=== PATIENT | female | born 1965 | race Caucasian/White ===

== ENCOUNTER 2017-01-29 15:34 | Inpatient (IN) | payer OTHER ==
[2017-01-29] MEDS ORDERED: Ondansetron 4 MG/2 ML SDV IV ONE (16:01)
[2017-01-29] MEDS ORDERED: Morphine 2 MG/ML Syringe IVPUSH ONE (16:01)
--- NOTE | 2017-01-29 16:11 | EDM.PDOC ---
ED HPI GENERAL MEDICAL PROBLEM - General Chief Complaint: Skin Complaint Stated Complaint: POSS CELLULITIS/BLOOD CLOT, [id number] Time Seen by Provider: 01/29/17 16:06 Source of Information: Reports: Patient History Limitations: Reports: No Limitations - History of Present Illness INITIAL COMMENTS - FREE TEXT/NARRATIVE: states woke up with left leg redness swelling pain hot. was fine last night Left Lower Leg Pain Score (Numeric/FACES): 4 - Related Data Allergies Allergy/AdvReac Type Severity Reaction Status Date / Time codeine Allergy Depression Verified 01/29/17 15:53 Home Meds: Home Meds Chlorthalidone [Chlorthalidone] 1 tab PO DAILY 01/29/17 [History] ED ROS GENERAL - Review of Systems Review Of Systems: ROS reveals no pertinent complaints other than HPI. ED EXAM, SKIN/RASH Exam: See Below Exam Limited By: No Limitations General Appearance: Alert, WD/WN, Mild Distress, Other (crying) Ears: Hearing Grossly Normal Throat/Mouth: Normal Voice, No Airway Compromise Head: Atraumatic Neck: Non-Tender, Full Range of Motion Respiratory/Chest: No Respiratory Distress Cardiovascular: Regular Rate, Rhythm GI/Abdominal: Soft, Non-Tender Extremities: Leg Pain, Increased Warmth, Redness, Other (left leg erythema hot swollen tender, NV wnl) Neurological: Alert, Oriented, Normal Cognition, Normal Gait, No Motor/Sensory Deficits Psychiatric: Tearful Skin: Warm, Dry, Normal Color Location, Skin: Lower Extremity, Left Associated features: Warmth, Tenderness, Swelling, Inflammation Lymphatic: No Adenopathy Course - Vital Signs Last Recorded V/S: Last Vital Signs Temp 38.1 C 01/29/17 16:56 Pulse 96 01/29/17 15:43 Resp 26 H 01/29/17 15:43 BP 113/79 01/29/17 16:56 Pulse Ox 98 01/29/17 15:43 - Orders/Labs/Meds Orders: Active Orders 24 hr Category Date Time Status Venous Doppler Lwr Ext Lt [US] Urgent Exams 01/29/17 16:02 Ordered CULTURE BLOOD [BC] Stat Lab 01/29/17 17:01 Ordered Sodium Chloride 0.9% [Normal Saline] 1,000 ml Med 01/29/17 16:48 Active IV .BOLUS Vancomycin [Vancocin] 1 gm Med 01/29/17 16:47 Active Sodium Chloride 0.9% [Normal Saline] 250 ml IV ONETIME Medication Orders Vancomycin HCl 1 gm/ Sodium (Chloride) 250 mls @ 167 mls/hr IV ONETIME ONE Stop: 01/29/17 18:16 Last Admin: 01/29/17 16:57 Dose: 167 mls/hr Sodium Chloride (Normal Saline) 1,000 mls @ 500 mls/hr IV .BOLUS ONE Stop: 01/29/17 18:47 Last Admin: 01/29/17 16:57 Dose: 500 mls/hr Labs: Laboratory Tests 01/29/17 01/29/17 01/29/17 Range/Units 16:00 16:00 16:00 WBC 19.8 H (5.0-10.0) 10^3/uL RBC 4.23 (4.2-5.4) 10^6/uL Hgb 12.8 (12.0-16.0) g/dL Hct 38.8 (37.0-47.0) % MCV 91.7 (80-100) fL MCH 30.3 (27.0-34.0) pg MCHC 33.0 (33.0-35.0) g/dL Plt Count 257 (150-450) 10^3/uL Neut % (Auto) 95.0 H (42.2-75.2) % Lymph % (Auto) 2.6 L (20.5-50.1) % [facility] % (Auto) 2.2 (2-8) % Eos % (Auto) 0.1 L (1.0-3.0) % Baso % (Auto) 0.1 (0.0-1.0) % D-Dimer, Quantitative (0-400) ng/mL Sodium 135 (135-145) mmol/L Potassium 2.8 L (3.6-5.0) mmol/L Chloride 97 L (101-111) mmol/L Carbon Dioxide 23.0 (21.0-31.0) mmol/L Anion Gap 17.8 BUN 12 (7-18) mg/dL Creatinine 0.8 (0.6-1.3) mg/dL Est Cr Clr Drug Dosing 86.94 mL/min Estimated GFR (MDRD) > 60 BUN/Creatinine Ratio 15.00 Glucose 107 H (74-105) mg/dL Lactic Acid 2.0 (0.5-2.2) mmol/L Calcium 8.9 (8.4-10.2) mg/dl Total Bilirubin 1.1 H (0.2-1.0) mg/dL AST 27 (10-42) IU/L ALT 15 (10-60) IU/L Alkaline Phosphatase 50 (42-121) IU/L Total Protein 7.4 (6.7-8.2) g/dl Albumin 3.8 (3.2-5.5) g/dl Globulin 3.6 Albumin/Globulin Ratio 1.06 // Range/Units 16:00 WBC (5.0-10.0) 10^3/uL RBC (4.2-5.4) 10^6/uL Hgb (12.0-16.0) g/dL Hct (37.0-47.0) % MCV (80-100) fL MCH (27.0-34.0) pg MCHC (33.0-35.0) g/dL Plt Count (150-450) 10^3/uL Neut % (Auto) (42.2-75.2) % Lymph % (Auto) (20.5-50.1) % [facility] % (Auto) (2-8) % Eos % (Auto) (1.0-3.0) % Baso % (Auto) (0.0-1.0) % D-Dimer, Quantitative 797 H (0-400) ng/mL Sodium (135-145) mmol/L Potassium (3.6-5.0) mmol/L Chloride (101-111) mmol/L Carbon Dioxide (21.0-31.0) mmol/L Anion Gap BUN (7-18) mg/dL Creatinine (0.6-1.3) mg/dL Est Cr Clr Drug Dosing mL/min Estimated GFR (MDRD) BUN/Creatinine Ratio Glucose (74-105) mg/dL Lactic Acid (0.5-2.2) mmol/L Calcium (8.4-10.2) mg/dl Total Bilirubin (0.2-1.0) mg/dL AST (10-42) IU/L ALT (10-60) IU/L Alkaline Phosphatase (42-121) IU/L Total Protein (6.7-8.2) g/dl Albumin (3.2-5.5) g/dl Globulin Albumin/Globulin Ratio Meds: Medications Generic Name Dose Route Start Last Admin Trade Name Freq PRN Reason Stop Dose Admin Vancomycin HCl 1 gm/ Sodium 250 mls @ 167 mls/hr 01/29/17 16:47 01/29/17 16: 57 Chloride IV 01/29/17 18:16 167 mls/hr ONETIME ONE Administration Sodium Chloride 1,000 mls @ 500 mls/hr 01/29/17 16:48 01/29/17 16:57 Normal Saline IV 01/29/17 18:47 500 mls/hr .BOLUS ONE Administration Discontinued Medications Generic Name Dose Route Start Last Admin Trade Name Freq PRN Reason Stop Dose Admin Hydromorphone HCl 1 mg 01/29/17 16:39 01/29/17 16:46 Dilaudid IVPUSH 01/29/17 16:40 1 mg ONETIME ONE Administration Morphine Sulfate 2 mg 01/29/17 16:01 01/29/17 16:05 Morphine IVPUSH 01/29/17 16:02 2 mg ONETIME ONE Administration Ondansetron HCl 4 mg 01/29/17 16:01 01/29/17 16:05 Zofran IV 01/29/17 16:02 4 mg ONETIME ONE Administration - Re-Assessments/Exams Free Text/Narrative Re-Assessment/Exam: 01/29/17 17:[address] Tam who kindly admitted pt. Departure - Departure Time of Disposition: 17:03 Disposition: Admitted As Inpatient 67 Condition: Good Clinical Impression: Cellulitis Qualifiers: Site of cellulitis: extremity Site of cellulitis of extremity: lower extremity Laterality: left Qualified Code(s): L03.116 - Cellulitis of left lower limb - Discharge Information Forms: ED Department Discharge - My Orders Last 24 Hours: My Active Orders 01/29/17 16:02 Venous Doppler Lwr Ext Lt [US] Urgent 01/29/17 16:47 Vancomycin [Vancocin] 1 gm Sodium Chloride 0.9% [Normal Saline] 250 ml IV ONETIME 01/29/17 16:48 Sodium Chloride 0.9% [Normal Saline] 1,000 ml IV .BOLUS 01/29/17 17:01 CULTURE BLOOD [BC] Stat - Assessment/Plan Last 24 Hours: My Active Orders 01/29/17 16:02 Venous Doppler Lwr Ext Lt [US] Urgent 01/29/17 16:47 Vancomycin [Vancocin] 1 gm Sodium Chloride 0.9% [Normal Saline] 250 ml IV ONETIME 01/29/17 16:48 Sodium Chloride 0.9% [Normal Saline] 1,000 ml IV .BOLUS 01/29/17 17:01 CULTURE BLOOD [BC] Stat
[2017-01-29 16:24] LABS: CHLORIDE,CL 97 mmol/L (101-111); SODIUM,NA 135 mmol/L (135-145)
[2017-01-29] MEDS ORDERED: HYDROmorphone 1 MG/ML Syringe IVPUSH ONE (16:39)
[2017-01-29] MEDS ORDERED: Sodium Chloride 0.9% 1,000 ML IV ONE (16:48)
[2017-01-29] MEDS ORDERED: Acetaminophen 325 MG Tab PO ONE (17:10)
[2017-01-29] MEDS ORDERED: Ketorolac 30 MG/ML SDV IVPUSH ONE (17:54)
[2017-01-29] MEDS ORDERED: Polyethylene Glycol 3350 Powder 17 GM Packet PO PRN (17:55)
[2017-01-29] MEDS ORDERED: Ondansetron 4 MG/2 ML SDV IVPUSH PRN (17:55)
[2017-01-29] MEDS ORDERED: Zolpidem 5 MG Tab PO PRN (17:55)
[2017-01-29] MEDS ORDERED: cefTRIAXone 1 GM in Sodium Chloride 0.9% 50 ML IV SCH (18:00)
--- NOTE | 2017-01-29 18:15 | PCM.HP ---
H&P History of Present Illness - General Date of Service: 01/29/17 Admit Problem/Dx: Admission Diagnosis/Problem Admission Diagnosis/Problem Sepsis due to cellulitis Source of Information: Patient, Family - History of Present Illness Initial Comments - Free Text/Narative: 52-year-old female with the past medical history of fair dyslipidemia, essential hypertension, low-grade squamous intraepithelial lesion of cervix presented to the emergency room from [facility] in [place] for having fever, chills, body aches, left leg redness/swelling/pain started at 1:30 AM today. Patient stated that she was out of town for the last 2 days and came last night. She has been feeling normal until she woke up early this morning with the above symptoms. Her leg symptoms progressively got worse since then. She denies history of thrombosis or MRSA. Patient denies headache, upper respiratory symptoms, nausea, vomiting, chest pain, shortness breath (however she said her breathing sometimes is getting labored to cause of her sever leg pain), chest pain, cough, abdominal pain, diarrhea, urinary symptoms, blood in stool, black stool, any other symptoms or concern. Patient denies history of diabetes mellitus, heart disease. In the emergency room ultrasound of the leg was negative for DVT. D-dimer 797. WBC 19,800 with left shift. Potassium 2.8. Lactic acid 2.0. Total bilirubin 1.1. Rest of CMP is unremarkable. EKG did not show acute findings. She was started on vancomycin in the emergency room. 2 sets of blood culture were drawn prior to antibiotics. She was started on IV fluid. When she gets to the room on the floor her temperature was 103 for her night. Left Lower Leg Pain Score (Numeric/FACES): 4 - Related Data Allergies/Adverse Reactions: Allergies Allergy/AdvReac Type Severity Reaction Status Date / Time codeine Allergy Depression Verified 01/29/17 15:53 Home Medications: Home Meds Chlorthalidone [Chlorthalidone] 1 tab PO DAILY 01/29/17 [History] Past Medical History Cardiovascular History: Reports: Hypertension Social & Family History - Tobacco Use Smoking Status *Q: Never Smoker - Recreational Drug Use Recreational Drug Use: No H&P Review of Systems - Review of Systems: Review Of Systems: ROS reveals no pertinent complaints other than HPI. Exam - Exam Exam: See Below - Vital Signs Vital Signs: Last Vital Signs Temp 39.4 C H 01/29/17 17:47 Pulse 108 H 01/29/17 17:47 Resp 20 01/29/17 17:47 BP 134/48 L 01/29/17 17:47 Pulse Ox 98 01/29/17 17:47 Weight: 112.037 kg - Exam General: Alert, Oriented, Cooperative, Moderate Distress (Due to shivering and leg pain). No: Severe Distress, Sedated, Lethargic, Obtunded HEENT: Conjunctiva Clear, EACs Clear, EOMI, Hearing Intact, Mucosa Moist & [place] , Nares Patent, Normal Nasal Septum, Posterior Pharynx Clear, Pupils Equal, Pupils Reactive, TMs Clear Neck: Supple, Trachea Midline. No: JVD Lungs: Clear to Auscultation, Normal Respiratory Effort. No: Decreased Breath Sounds, Rales, Rhonchi, Rub, Stridor, Wheezing Cardiovascular: Regular Rate, Regular Rhythm GI/Abdominal Exam: Normal Bowel Sounds, Soft, Non-Tender, No Organomegaly, No Distention, No Abnormal Bruit, No Mass (Female) Exam: Deferred Rectal (Female) Exam: Deferred Back Exam: Normal Inspection, Full Range of Motion. No: CVA Tenderness (L), CVA Tenderness (R) Extremities: Normal Range of Motion, Normal Capillary Refill, Other (Right leg is normal. Left leg has marked erythema, mild swelling, marked tenderness. Area of redness is marked. No fluctuation or drainage appreciated.) Skin: Warm, Dry, Intact Neurological: Cranial Nerves Intact, Reflexes Equal Bilateral, Normal Tone Neuro Extensive - Mental Status: Alert, Oriented x3 Neuro Extensive - Motor, Sensory, Reflexes: CN II-XII Intact Psychiatric: Alert, Normal Affect, Normal Mood - Patient Data Result Diagrams: 01/29/17 16:00 01/29/17 16:00 *Q Meaningful Use (ADM) - VTE *Q VTE Criteria *Q: - Stroke *Q Stroke Criteria *Q: - AMI *Q AMI Criteria *Q: - Problem List (1) Sepsis due to cellulitis SNOMED Code(s): 66154773 ICD Code: L03.90 - CELLULITIS, UNSPECIFIED; A41.9 - SEPSIS, UNSPECIFIED ORGANISM Status: Acute Priority: High Current Visit: Yes (2) Cellulitis of leg, left SNOMED Code(s): 968746231 ICD Code: L03.116 - CELLULITIS OF LEFT LOWER LIMB Status: Acute Priority : High Current Visit: Yes (3) Hypokalemia SNOMED Code(s): 91267451 ICD Code: E87.6 - HYPOKALEMIA Status: Acute Priority: High Current Visit: Yes (4) Essential hypertension SNOMED Code(s): 42775339 ICD Code: I10 - ESSENTIAL (PRIMARY) HYPERTENSION Status: Chronic Current Visit: Yes Problem List Initiated/Reviewed/Updated: Yes Orders Last 24hrs: Active Orders 24 hr Category Date Time Status Patient Status [ADT] Routine ADT 01/29/17 17:55 Active EKG 12 Lead [EKG Documentation Completion] [RC] STAT Care 01/29/17 17:53 Ordered Height and Weight [RC] DAILY Care 01/29/17 17:55 Active Intake and Output [RC] Q6H Care 01/29/17 17:57 Active Notify Provider Vital Signs [RC] ASDIRECTED Care 01/29/17 17:58 Active Oxygen Therapy [RC] PRN Care 01/29/17 17:55 Active Up ad Susy [RC] ASDIRECTED Care 01/29/17 17:55 Active VTE/DVT Education [RC] PER UNIT ROUTINE Care 01/29/17 17:55 Active Vital Signs [RC] Q4H Care 01/29/17 17:55 Active Regular Diet [DIET] Diet 01/29/17 Breakfast Active BASIC METABOLIC PANEL,BMP [CHEM] AM Lab 01/30/17 05:11 Ordered C-REACTIVE PROTEIN [REF] Routine Lab 01/29/17 17:55 Ordered CBC WITH AUTO DIFF [HEME] AM Lab 01/30/17 05:11 Ordered MAGNESIUM [CHEM] Routine Lab 01/29/17 17:55 Ordered Acetaminophen [Tylenol] Med 01/29/17 17:55 Ordered 650 mg PO Q4H PRN Acetaminophen/HYDROcodone [[place] 325-10 MG] Med 01/29/17 17:55 Ordered 0.5 tab PO Q4H PRN Enoxaparin [Lovenox] Med 01/30/17 09:00 Ordered 40 mg SUBCUT DAILY Ketorolac [Toradol] Med 01/29/17 17:54 Once 30 mg IVPUSH ONETIME ONE Morphine Med 01/29/17 17:55 Ordered 2 mg IVPUSH Q2H PRN Ondansetron [Zofran] Med 01/29/17 17:55 Ordered 4 mg IVPUSH Q6H PRN Polyethylene Glycol 3350 [MiraLAX] Med 01/29/17 17:55 Ordered 17 gm PO DAILY PRN Potassium Chloride [KCl 10 MEQ in Water 100 ML] 10 meq Med 01/29/17 17:45 Ordered Premix Bag 1 bag IV Q1H Potassium Chloride [Klor-Con 10] Med 01/29/17 17:45 Ordered 20 meq PO TIDMEALS Sodium Chloride 0.9% @ 100 MLS/HR(1,000ml) Med 01/29/17 18:00 Ordered Sodium Chloride 0.9% [Normal Saline] 1,000 ml IV ASDIRECTED Sodium Chloride 0.9% [Normal Saline] 1,000 ml Med 01/29/17 17:52 Ordered IV .BOLUS Zolpidem [Ambien] Med 01/29/17 17:55 Ordered 5 mg PO BEDTIME PRN cefTRIAXone [Rocephin] 1 gm Med 01/29/17 18:00 Ordered Sodium Chloride 0.9% [Normal Saline] 50 ml IV Q24H Resuscitation Status Routine Resus Stat 01/29/17 17:55 Ordered Medication Orders Acetaminophen (Tylenol) 650 mg PO Q4H PRN PRN Reason: Pain (Mild 1-3)/fever Hydrocodone Bitart/Acetaminophen ([place] 325-10 Mg) 0.5 tab PO Q4H PRN PRN Reason: Pain (moderate 4-6) Enoxaparin Sodium (Lovenox) 40 mg SUBCUT DAILY [facility] Vancomycin HCl 1 gm/ Sodium (Chloride) 250 mls @ 167 mls/hr IV ONETIME ONE Stop: 01/29/17 18:16 Last Admin: 01/29/17 16:57 Dose: 167 mls/hr Sodium Chloride (Normal Saline) 1,000 mls @ 500 mls/hr IV .BOLUS ONE Stop: 01/29/17 18:47 Last Admin: 01/29/17 16:57 Dose: 500 mls/hr Potassium Chloride 10 meq/ (Premix) 100 mls @ 100 mls/hr IV Q1H [facility] Stop: 01/29/17 21:44 Sodium Chloride (Normal Saline) 1,000 mls @ 999 mls/hr IV .BOLUS ONE Stop: 01/29/17 18:52 Sodium Chloride (Normal Saline) 1,000 mls @ 100 mls/hr IV ASDIRECTED [facility] Ceftriaxone Sodium 1 gm/ (Sodium Chloride) 50 mls @ 100 mls/hr IV Q24H [facility] Ketorolac Tromethamine (Toradol) 30 mg IVPUSH ONETIME ONE Stop: 01/29/17 17:55 Morphine Sulfate (Morphine) 2 mg IVPUSH Q2H PRN PRN Reason: Pain (severe 7-10) Ondansetron HCl (Zofran) 4 mg IVPUSH Q6H PRN PRN Reason: Nausea/Vomiting Polyethylene Glycol (Miralax) 17 gm PO DAILY PRN PRN Reason: Constipation Potassium Chloride (Klor-Con 10) 20 meq PO TIDMEALS [facility] Stop: 01/30/17 12:01 Zolpidem Tartrate (Ambien) 5 mg PO BEDTIME PRN PRN Reason: Sleep Assessment/Plan Comment:: Assessment and plan Sepsis due to cellulitis -Fluid resuscitation of 30 ml per kilogram (3000 ml will be given) -Awaiting blood cultures resolved -Stop vancomycin after first dose and start Rocephin 1 g daily Left leg cellulitis -Treat as above Sever leg pain, from cellulitis -Morphine as needed for pain. Toradol 30 mg IV once for pain control and elevated temp now Hypokalemia -Start potassium chloride 40 mEq IV, infused in 4 hours. In addition to potassium chloride 40 mEq by mouth now then 20 mEq by mouth every 8 hours after that for another 2 doses Recheck potassium in the morning -Check magnesium Essential hypertension -Hold chlorthalidone due to sepsis and hypokalemia -The patient continues to be on chlorthalidone a bone discharge she may needs to have small dose of supplemental oral potassium chloride with it Lovenox for DVT prophylaxis She is full code
[2017-01-29] MEDS ORDERED: Sodium Chloride 0.9% 1,000 ML IV SCH (18:20)
[2017-01-29] MEDS ORDERED: cefTRIAXone 2 GM in Sodium Chloride 0.9% 50 ML IV SCH (18:37)
[2017-01-29] MEDS: Potassium Chloride 10 MEQ in Premix Bag 1 BAG IV SCH ×4 (18:40→22:09)
[2017-01-29] MEDS: Potassium Chloride 10 MEQ Tab.ER PO SCH (18:40)
[2017-01-29] MEDS ORDERED: cefTRIAXone 2 GM in Sodium Chloride 0.9% 100 ML IV SCH (19:00)
[2017-01-29] MEDS ORDERED: Potassium Chloride 10 MEQ Tab.ER PO ONE (21:00)
[2017-01-29] MEDS: Sodium Chloride 0.9% 1,000 ML IV SCH (21:02)
[2017-01-30] MEDS: Acetaminophen 325 MG Tab PO PRN ×3 (00:15→16:55)
[2017-01-30] MEDS: Sodium Chloride 0.9% 1,000 ML IV SCH ×4 (01:05→17:00)
[2017-01-30] MEDS: Acetaminophen/HYDROcodone 325-10 MG Tab PO PRN ×2 (01:07→08:54)
[2017-01-30] MEDS ORDERED: Ibuprofen 200 MG Tab PO PRN ×2 (01:23→11:10)
[2017-01-30 06:58] LABS: CHLORIDE,CL 104 mmol/L (101-111); SODIUM,NA 135 mmol/L (135-145)
[2017-01-30] MEDS: Potassium Chloride 10 MEQ Tab.ER PO SCH ×2 (08:48→12:09)
[2017-01-30] MEDS: Morphine 2 MG/ML Syringe IVPUSH PRN (08:48)
[2017-01-30] MEDS: Enoxaparin 40 MG/0.4 ML Syringe SUBCUT SCH (08:57)
[2017-01-30] MEDS ORDERED: Magnesium Sulfate/Water 2 GM in Premix Bag 1 BAG IV SCH (09:14)
[2017-01-30] MEDS ORDERED: Potassium Chloride 10 MEQ in Premix Bag 4 BAG IV ONE (09:14)
[2017-01-30] MEDS: Potassium Chloride 10 MEQ in Premix Bag 1 BAG IV SCH ×5 (09:54→15:46)
--- NOTE | 2017-01-30 10:05 | PCM.PN ---
- General Info Date of Service: 01/30/17 Admission Dx/Problem (Free Text): Admission Diagnosis/Problem Admission Diagnosis/Problem Sepsis due to cellulitis of Left Lower extremity Subjective Update: Pt still spiking temperature, still complain of pain, appetite is not good, No nausea or vomiting, no abdominal pain, Diarrhea/Dyusuria Functional Status: Reports: Pain Controlled, Tolerating Diet, Urinating - Review of Systems General: Reports: Fever, Chills, Appetite (not good) HEENT: Reports: Headaches. Denies: Sinus Congestion, Sore Throat, Visual Changes Pulmonary: Denies: Shortness of Breath, Pleuritic Chest Pain, Cough, Sputum, Wheezing Cardiovascular: Denies: Chest Pain, Lightheadedness Gastrointestinal: Reports: Decreased Appetite. Denies: Abdominal Pain, Nausea, Vomiting Genitourinary: Denies: Dysuria, Frequency, Burning, Flank Pain Musculoskeletal: Reports: Leg Pain Skin: Reports: Rash (Left LE). Denies: Cyanosis, Bruising, Pruritis (Redness to Left LE) Neurological: Reports: Headache. Denies: Confusion, Dizziness, Weakness Psychiatric: Denies: Confusion, Anxiety - Patient Data Vitals - Most Recent: Last Vital Signs Temp 37.8 C 01/30/17 09:35 Pulse 77 01/30/17 07:00 Resp 20 01/30/17 07:00 BP 100/62 01/30/17 07:00 Pulse Ox 96 01/30/17 07:00 Weight - Most Recent: 112.037 kg I&O - Last 24 Hours: Intake & Output 01/29/17 01/30/17 01/30/17 22:59 06:59 14:59 Intake Total 1999 Output Total 350 500 Balance 1650 1993 100 Lab Results Last 24 Hours: Laboratory Results - last 24 hr 01/29/17 01/29/17 01/30/17 Range/Units 23:10 23:10 06:05 WBC 9.7 (5.0-10.0) 10^3/uL RBC 3.42 L (4.2-5.4) 10^6/uL Hgb 10.4 L (12.0-16.0) g/dL Hct 32.6 L (37.0-47.0) % MCV 95.3 (80-100) fL MCH 30.4 (27.0-34.0) pg MCHC 31.9 L (33.0-35.0) g/dL Plt Count 212 (150-450) 10^3/uL Neut % (Auto) 90.6 H (42.2-75.2) % Lymph % (Auto) 7.5 L (20.5-50.1) % [place] % (Auto) 1.7 L (2-8) % Eos % (Auto) 0.0 L (1.0-3.0) % Baso % (Auto) 0.2 (0.0-1.0) % Sodium (135-145) mmol/L Potassium 3.7 (3.6-5.0) mmol/L Chloride (101-111) mmol/L Carbon Dioxide (21.0-31.0) mmol/L Anion Gap BUN (7-18) mg/dL Creatinine (0.6-1.3) mg/dL Est Cr Clr Drug Dosing mL/min Estimated GFR (MDRD) Glucose (74-105) mg/dL Lactic Acid 0.9 (0.5-2.2) mmol/L Calcium (8.4-10.2) mg/dl Magnesium (1.8-2.5) mg/dL 01/30/17 01/30/17 Range/Units 06:05 06:05 WBC (5.0-10.0) 10^3/uL RBC (4.2-5.4) 10^6/uL Hgb (12.0-16.0) g/dL Hct (37.0-47.0) % MCV (80-100) fL MCH (27.0-34.0) pg MCHC (33.0-35.0) g/dL Plt Count (150-450) 10^3/uL Neut % (Auto) (42.2-75.2) % Lymph % (Auto) (20.5-50.1) % [place] % (Auto) (2-8) % Eos % (Auto) (1.0-3.0) % Baso % (Auto) (0.0-1.0) % Sodium 135 (135-145) mmol/L Potassium 2.8 L (3.6-5.0) mmol/L Chloride 104 (101-111) mmol/L Carbon Dioxide 21.0 (21.0-31.0) mmol/L Anion Gap 12.8 BUN 12 (7-18) mg/dL Creatinine 0.8 (0.6-1.3) mg/dL Est Cr Clr Drug Dosing 86.94 mL/min Estimated GFR (MDRD) > 60 Glucose 92 (74-105) mg/dL Lactic Acid (0.5-2.2) mmol/L Calcium 6.9 L (8.4-10.2) mg/dl Magnesium 1.4 L (1.8-2.5) mg/dL [facility]innie Results Last 24 Hours: Microbiology 01/30/17 01:45 Anaerobic Blood Culture - Final Blood - Venous 01/30/17 01:50 Anaerobic Blood Culture - Final Blood - Venous - Lab Draw Med Orders - Current: Current Medications Acetaminophen (Tylenol) 650 mg PO Q4H PRN PRN Reason: Pain (Mild 1-3)/fever Last Admin: 01/30/17 00:15 Dose: 650 mg Hydrocodone Bitart/Acetaminophen ([place] 325-10 Mg) 0.5 tab PO Q4H PRN PRN Reason: Pain (moderate 4-6) Last Admin: 01/30/17 08:54 Dose: 0.5 tab Enoxaparin Sodium (Lovenox) 40 mg SUBCUT DAILY [facility] Last Admin: 01/30/17 08:57 Dose: 40 mg Sodium Chloride (Normal Saline) 1,000 mls @ 250 mls/hr IV ASDIRECTED [facility] Last Admin: 01/30/17 05:12 Dose: 250 mls/hr Ceftriaxone Sodium 2 gm/ (Sodium Chloride) 100 mls @ 200 mls/hr IV Q24H [facility] Last Admin: 01/29/17 19:03 Dose: 200 mls/hr Magnesium Sulfate 2 gm/ Premix 50 mls @ 50 mls/hr IV Q1H [facility] Stop: 01/30/17 10:13 Last Admin: 01/30/17 09:53 Dose: 25 mls/hr Potassium Chloride 10 meq/ (Premix) 0 mls @ 100 mls/hr IV Q1H [facility] Stop: 01/30/17 12:31 Last Admin: 01/30/17 09:54 Dose: 100 mls/hr Vancomycin HCl 1 gm/ Sodium (Chloride) 250 mls @ 167 mls/hr IV ONETIME ONE Stop: 01/30/17 11:23 Ibuprofen (Motrin) 200 mg PO Q12H PRN PRN Reason: Fever 104 or greater Last Admin: 01/30/17 01:41 Dose: 200 mg Morphine Sulfate (Morphine) 2 mg IVPUSH Q2H PRN PRN Reason: Pain (severe 7-10) Last Admin: 01/30/17 08:48 Dose: 2 mg Ondansetron HCl (Zofran) 4 mg IVPUSH Q6H PRN PRN Reason: Nausea/Vomiting Polyethylene Glycol (Miralax) 17 gm PO DAILY PRN PRN Reason: Constipation Potassium Chloride (Klor-Con 10) 20 meq PO TIDMEALS [facility] Stop: 01/30/17 12:01 Last Admin: 01/30/17 08:48 Dose: 20 meq Vancomycin HCl (Pharmacy To Dose - Vancomycin) 1 dose .XX ASDIRECTED [facility] Zolpidem Tartrate (Ambien) 5 mg PO BEDTIME PRN PRN Reason: Sleep Discontinued Medications Acetaminophen (Tylenol) 325 mg PO NOW ONE Stop: 01/29/17 17:11 Last Admin: 01/29/17 18:38 Dose: 325 mg Hydromorphone HCl (Dilaudid) 1 mg IVPUSH ONETIME ONE Stop: 01/29/17 16:40 Last Admin: 01/29/17 16:46 Dose: 1 mg Vancomycin HCl 1 gm/ Sodium (Chloride) 250 mls @ 167 mls/hr IV ONETIME ONE Stop: 01/29/17 18:16 Last Admin: 01/29/17 16:57 Dose: 167 mls/hr Sodium Chloride (Normal Saline) 1,000 mls @ 500 mls/hr IV .BOLUS ONE Stop: 01/29/17 18:47 Last Infusion: 01/29/17 18:43 Dose: 400 mls/hr Potassium Chloride 10 meq/ (Premix) 100 mls @ 100 mls/hr IV Q1H [facility] Stop: 01/29/17 21:44 Last Admin: 01/29/17 22:09 Dose: 100 mls/hr Sodium Chloride (Normal Saline) 1,000 mls @ 999 mls/hr IV ASDIRECTED [facility] Stop: 01/29/17 19:21 Last Admin: 01/29/17 19:49 Dose: 999 mls/hr Ceftriaxone Sodium 1 gm/ (Sodium Chloride) 50 mls @ 100 mls/hr IV Q24H [facility] Last Admin: 01/29/17 18:41 Dose: Not Given Ketorolac Tromethamine (Toradol) 30 mg IVPUSH ONETIME ONE Stop: 01/29/17 17:55 Last Admin: 01/29/17 18:38 Dose: 30 mg Morphine Sulfate (Morphine) 2 mg IVPUSH ONETIME ONE Stop: 01/29/17 16:02 Last Admin: 01/29/17 16:05 Dose: 2 mg Ondansetron HCl (Zofran) 4 mg IV ONETIME ONE Stop: 01/29/17 16:02 Last Admin: 01/29/17 16:05 Dose: 4 mg Potassium Chloride (Klor-Con 10) 20 meq PO ONETIME ONE Stop: 01/29/17 21:01 Last Admin: 01/29/17 21:07 Dose: 20 meq - Exam Quality Assessment: DVT Prophylaxis. No: Supplemental Oxygen, Urine Catheter, Skin Breakdown General: Alert, Oriented, Cooperative, No Acute Distress HEENT: Pupils Equal, Pupils Reactive, Mucous Membr. Moist/[place] Neck: Supple, No JVD. No: Lymphadenopathy Lungs: Clear to Auscultation, Normal Respiratory Effort. No: Crackles, Wheezing GI/Abdominal Exam: Normal Bowel Sounds, Soft, Non-Tender. No: Guarding, Rebound (Female) Exam: Deferred Back Exam: Normal Inspection, Full Range of Motion Extremities: Increased Warmth, Redness (to Left LE, RT LE no edema, good peripheral pulses, No cyanosis or skin break) Skin: Warm, Dry, Intact Neurological: No New Focal Deficit, Normal Speech Psy/Mental Status: Alert, Normal Affect, Normal Mood - Problem List & Annotations (1) Hypomagnesemia SNOMED Code(s): 005090349 Code(s): E83.42 - HYPOMAGNESEMIA Status: Acute Current Visit: Yes (2) Cellulitis of leg, left SNOMED Code(s): 620697303 Code(s): L03.116 - CELLULITIS OF LEFT LOWER LIMB Status: Acute Priority: High Current Visit: Yes (3) Hypokalemia SNOMED Code(s): 64750817 Code(s): E87.6 - HYPOKALEMIA Status: Acute Priority: High Current Visit : Yes (4) Sepsis due to cellulitis SNOMED Code(s): 27288268 Code(s): L03.90 - CELLULITIS, UNSPECIFIED; A41.9 - SEPSIS, UNSPECIFIED ORGANISM Status: Acute Priority: High Current Visit: Yes (5) Essential hypertension SNOMED Code(s): 40554544 Code(s): I10 - ESSENTIAL (PRIMARY) HYPERTENSION Status: Chronic Current Visit: Yes - Problem List Review Problem List Initiated/Reviewed/Updated: Yes - My Orders Last 24 Hours: My Active Orders 01/30/17 01:23 Ibuprofen [Motrin] 200 mg PO Q12H PRN 01/30/17 01:28 Blood Culture x2 Reflex Set [OM.PC] Stat 01/30/17 01:45 CULTURE BLOOD [BC] Stat 01/30/17 01:50 CULTURE BLOOD [BC] Stat 01/30/17 09:14 Magnesium Sulfate/Water [Magnesium Sulfate 2 GM in Water 50 ML] 2 gm Premix Bag 1 bag IV Q1H 01/30/17 09:30 Potassium Chloride [KCl 10 MEQ in Water 100 ML] 10 meq Premix Bag 1 bag IV Q1H 01/30/17 09:54 Vancomycin [Vancocin] 1 gm Sodium Chloride 0.9% [Normal Saline] 250 ml IV ONETIME 01/30/17 10:00 Vancomycin Pharmacy to Dose [Pharmacy to Dose - Vancomycin] 1 dose .XX ASDIRECTED - Plan Plan:: This is a 52-year-old female with the past medical history of dyslipidemia, essential hypertension, low-grade squamous intraepithelial lesion of cervix presented to the emergency room from [facility] in [place] for having fever, chills, body aches, left leg redness/swelling/pain started at 1:30 AM today. Patient stated that she was out of town for the last 2 days and came last night. She has been feeling normal until she woke up early this morning with the above symptoms. Her leg symptoms progressively got worse since then. She denies history of DVT or MRSA Infection. Patient denies history of diabetes mellitus, heart disease. In the emergency room ultrasound of the leg was negative for DVT. D-dimer 797. WBC 19,800 with left shift. Potassium 2.8. Lactic acid 2.0. 2 sets of blood culture were drawn prior to antibiotics.In ED her temperature was 103 F Assessment and plan: Sepsis due to cellulitis -Continue IV Fluid NS at 100 ml/hr -Awaiting blood cultures -Will re-start vancomycin and give 1 gm IV x 1 dose now and after pharmacy to dose and will stop Rocephin [ was at 1 g daily] and start Cefazolin 1.5 gm q8 hrs Left leg cellulitis -Continue Vancomycin and Ceftriaxone Sever leg pain, from cellulitis -Morphine as needed for pain. -Will continue Tylenol 650 mg q4-6 hrs and also Ibuprofen 400 mg q6 hrs -Will also give dilaudid 2 gm IV X 1 dose Hypokalemia -The pt is on [place] Profile diet and may need regualr check of her potassium and magnesium -Will give potassium chloride 40 mEq IV, infused in 4 hours.and also give potassium chloride 40 mEq by mouth -Will start potassium chloride 20 mEq by mouth 2 times a day ( scheduled) - Recheck potassium 1 hr after the completion of infusion -Check magnesium Essential hypertension: BP was on the low side -Hold chlorthalidone Hypomagnesemia: This is also likely from poor dietary intake -Will give Magnesium sulfate 2 gm IV X 1 dose and re-check 1 hr after Infusion DVT prophylaxis: Lovenox for DVT prophylaxis GI prophylaxis: start Pepcid 40 mg daily Code Status: She is full code
[2017-01-30] MEDS ORDERED: HYDROmorphone 1 MG/ML Syringe IVPUSH ONE (14:26)
[2017-01-30] MEDS ORDERED: Ibuprofen 400 MG Tab PO STA (15:19)
[2017-01-30] MEDS ORDERED: Ibuprofen 400 MG Tab PO PRN (15:20)
[2017-01-30] MEDS ORDERED: Sodium Chloride 0.9% 1,000 ML IV SCH (17:45)
[2017-01-31] MEDS: Acetaminophen/HYDROcodone 325-10 MG Tab PO PRN (00:14)
[2017-01-31] MEDS: Morphine 2 MG/ML Syringe IVPUSH PRN (05:59)
[2017-01-31 07:07] LABS: CHLORIDE,CL 106 mmol/L (101-111); SODIUM,NA 136 mmol/L (135-145)
[2017-01-31] MEDS: Enoxaparin 40 MG/0.4 ML Syringe SUBCUT SCH (08:34)
[2017-01-31] MEDS ORDERED: HYDROmorphone 1 MG/ML Syringe IM ONE (08:50)
[2017-01-31] MEDS ORDERED: Potassium Chloride 10 MEQ Tab.ER PO ONE (08:50)
[2017-01-31] MEDS ORDERED: HYDROmorphone 1 MG/ML Syringe IVPUSH ONE (08:50)
[2017-01-31] MEDS ORDERED: Furosemide 40 MG/4 ML VIAL IVPUSH ONE (08:51)
[2017-01-31] MEDS ORDERED: Famotidine 20 MG/2 ML SDV IVPUSH SCH (09:00)
--- NOTE | 2017-01-31 09:06 | PCM.DCSUM1 ---
Discharge Summary - Hospital Course Free Text/Narrative:: This is a 52-year-old female with the past medical history of dyslipidemia, essential hypertension, low-grade squamous intraepithelial lesion of cervix presented to the emergency room from [facility] in [place] for having fever, chills, body aches, left leg redness/swelling/pain started at 1:30 AM on 01/29/17. Patient stated that she was out of town for the last 2 days and came back last night. She has been feeling normal until she woke up early the morning with the above symptoms. Her leg symptoms progressively got worse since then. She denies history of DVT or MRSA Infection. Patient denies history of diabetes mellitus, heart disease. In the emergency room ultrasound of the leg was negative for DVT. D-dimer 797. WBC 19, 800 with left shift. Potassium 2.8. Lactic acid 2.0. 2 sets of blood culture were drawn prior to antibiotics and sofar showing no growth.In ED her temperature was 103 F and after admission she was started on Vancomycin and Ceftriaxone, despite that she continued to have Temperature between 102-103 F, she was getting Tylenol and Ibuprofen. today she is afebrile but her renedd in her Left LE spreading further and also developed a new blister. I have discussed with pt and her about the transfer to higher level of care facility and they wanted to go to [facility]. - Discharge Data Discharge Date: 01/31/17 Discharge Disposition: DC/Tfer to Acute Hospital 02 Condition: Good - Discharge Diagnosis/Problem(s) (1) Hypomagnesemia SNOMED Code(s): 034547000 ICD Code: E83.42 - HYPOMAGNESEMIA Status: Acute Current Visit: Yes (2) Cellulitis of leg, left SNOMED Code(s): 416967436 ICD Code: L03.116 - CELLULITIS OF LEFT LOWER LIMB Status: Acute Priority : High Current Visit: Yes (3) Hypokalemia SNOMED Code(s): 60517852 ICD Code: E87.6 - HYPOKALEMIA Status: Acute Priority: High Current Visit: Yes (4) Sepsis due to cellulitis SNOMED Code(s): 49454518 ICD Code: L03.90 - CELLULITIS, UNSPECIFIED; A41.9 - SEPSIS, UNSPECIFIED ORGANISM Status: Acute Priority: High Current Visit: Yes (5) Essential hypertension SNOMED Code(s): 03564821 ICD Code: I10 - ESSENTIAL (PRIMARY) HYPERTENSION Status: Chronic Current Visit: Yes - Patient Instructions Diet: Usual Diet as Tolerated Activity: As Tolerated - Discharge Plan Home Medications: Home Meds Chlorthalidone [Chlorthalidone] 1 tab PO DAILY 01/29/17 [History] Forms: ED Department Discharge Referrals: Nikki Coates MD [Primary Care Provider] - - Discharge Summary/Plan Comment DC Time >30 min.: Yes Discharge Summary/Plan Comment: This is a 52 y/O F admitted with Left LE cellulitis with fever Assessment and plan: Sepsis due to cellulitis -Stop IV Fluids -Awaiting blood cultures ( no growth in 2 days) -Continue vancomycin ( pharmcy monitoring the dose and Level) and Initially was on Recephin stopped Rocephin on 01/30 [ was at 1 g daily] and started Cefazolin 1.5 gm q8 hrs on 01/31/17 -The redness not improving and also developing new blister, discussed with pt about transfer to higher level of care facility and will be transferred to [facility] as per Pt's request -Will give lasix 40 mg IV X 1 dose now Left leg cellulitis -Continue Vancomycin and Cefazolin Sever leg pain, from cellulitis -Dalaudid as needed for pain. -Will continue Tylenol 650 mg q4-6 hrs and also Ibuprofen 400 mg q6 hrs -Has received dilaudid 2 gm IV X 1 dose this AM Hypokalemia -The pt is on [place] Profile diet and may need regualr check of her potassium and magnesium -Will give potassium chloride 40 mEq PO X 1 dose now , -re- Check magnesium acceptable Essential hypertension: BP was on the low side -Continue to Hold chlorthalidone Hypomagnesemia: This is also likely from poor dietary intake -She has e Magnesium sulfate 2 gm IV X 1 dose on admission and re-reat check acceptable DVT prophylaxis: Lovenox for DVT prophylaxis GI prophylaxis: on Pepcid 20 mg IV daily Code Status: She is full code - General Info Date of Service: 01/31/17 Admission Dx/Problem (Free Text: Admission Diagnosis/Problem Admission Diagnosis/Problem Cellulitis of Left Lower extremity Subjective Update: Pt did not have high temperature today , still complain of pain, appetite is not good, No nausea or vomiting, no abdominal pain, Diarrhea/Dyusuria Functional Status: Reports: Pain Controlled, Tolerating Diet, Urinating - Review of Systems General: Reports: Appetite (not good). Denies: Fever, Chills HEENT: Denies: Headaches, Sinus Congestion, Sore Throat, Visual Changes Pulmonary: Denies: Shortness of Breath, Cough, Sputum, Wheezing Cardiovascular: Denies: Chest Pain, Dyspnea on Exertion, Lightheadedness Gastrointestinal: Denies: Abdominal Pain, Constipation, Diarrhea, Difficulty Swallowing, Nausea, Vomiting Genitourinary: Denies: Dysuria, Burning, Urgency, Flank Pain Musculoskeletal: Reports: Leg Pain (Left LE), Foot Pain (Left LE) Skin: Reports: Rash, Other (Blister) Neurological: Denies: Confusion, Tingling, Tremors, Trouble Speaking Psychiatric: Denies: Confusion, Anxiety - Patient Data Vitals - Most Recent: Last Vital Signs Temp 37.3 C 01/31/17 06:55 Pulse 85 01/31/17 06:55 Resp 20 01/31/17 06:55 BP 126/67 01/31/17 06:55 Pulse Ox 96 01/31/17 06:55 Weight - Most Recent: 112.037 kg I&O - Last 24 hours: Intake & Output 01/30/17 01/31/17 01/31/17 22:59 06:59 14:59 Intake Total 1165 1453 Output Total 1300 2050 Balance -135 -597 Lab Results - Last 24 hrs: Laboratory Results - last 24 hr 01/31/17 Range/Units 06:25 Sodium 136 (135-145) mmol/L Potassium 3.2 L (3.6-5.0) mmol/L Chloride 106 (101-111) mmol/L Carbon Dioxide 20.0 L (21.0-31.0) mmol/L Anion Gap 13.2 BUN 6 L (7-18) mg/dL Creatinine 0.7 (0.6-1.3) mg/dL Est Cr Clr Drug Dosing 99.37 mL/min Estimated GFR (MDRD) > 60 Glucose 95 (74-105) mg/dL Calcium 7.4 L (8.4-10.2) mg/dl Magnesium 2.0 (1.8-2.5) mg/dL JANI Results - Last 24 hrs: Microbiology 01/30/17 01:50 Aerobic Blood Culture - Preliminary Blood - Venous - Lab Draw NO GROWTH AFTER 1 DAY Anaerobic Blood Culture - Final 01/30/17 01:45 Aerobic Blood Culture - Preliminary Blood - Venous NO GROWTH AFTER 1 DAY Anaerobic Blood Culture - Final Med Orders - Current: Current Medications Acetaminophen (Tylenol) 650 mg PO Q4H PRN PRN Reason: Pain (Mild 1-3)/fever Last Admin: 01/30/17 16:55 Dose: 650 mg Hydrocodone Bitart/Acetaminophen ([place] 325-10 Mg) 0.5 tab PO Q4H PRN PRN Reason: Pain (moderate 4-6) Last Admin: 01/31/17 00:14 Dose: 0.5 tab Enoxaparin Sodium (Lovenox) 40 mg SUBCUT DAILY [facility] Last Admin: 01/31/17 08:34 Dose: 40 mg Famotidine (Pepcid) 20 mg IVPUSH DAILY [facility] Last Admin: 01/31/17 08:34 Dose: 20 mg Hydromorphone HCl (Dilaudid) 2 mg IVPUSH ONETIME ONE Stop: 01/31/17 08:51 Vancomycin HCl 1.25 gm/ Sodium (Chloride) 250 mls @ 166.667 mls/hr IV Q8H [facility] Last Admin: 01/31/17 01:56 Dose: 166.667 mls/hr Cefazolin Sodium 1.5 gm/ (Sodium Chloride) 100 mls @ 200 mls/hr IV Q8H [facility] Last Admin: 01/31/17 09:04 Dose: 200 mls/hr Ibuprofen (Motrin) 400 mg PO Q4H PRN PRN Reason: pain/fever Last Admin: 01/31/17 05:57 Dose: 400 mg Morphine Sulfate (Morphine) 2 mg IVPUSH Q2H PRN PRN Reason: Pain (severe 7-10) Last Admin: 01/31/17 05:59 Dose: 2 mg Ondansetron HCl (Zofran) 4 mg IVPUSH Q6H PRN PRN Reason: Nausea/Vomiting Polyethylene Glycol (Miralax) 17 gm PO DAILY PRN PRN Reason: Constipation Vancomycin HCl (Pharmacy To Dose - Vancomycin) 1 dose .XX ASDIRECTED [facility] Zolpidem Tartrate (Ambien) 5 mg PO BEDTIME PRN PRN Reason: Sleep Discontinued Medications Acetaminophen (Tylenol) 325 mg PO NOW ONE Stop: 01/29/17 17:11 Last Admin: 01/29/17 18:38 Dose: 325 mg Furosemide (Lasix) 40 mg IVPUSH ONETIME ONE Stop: 01/31/17 08:52 Hydromorphone HCl (Dilaudid) 1 mg IVPUSH ONETIME ONE Stop: 01/29/17 16:40 Last Admin: 01/29/17 16:46 Dose: 1 mg Hydromorphone HCl (Dilaudid) 1 mg IVPUSH ONETIME ONE Stop: 01/30/17 14:27 Last Admin: 01/30/17 14:39 Dose: 1 mg Hydromorphone HCl (Dilaudid) 2 mg IM ONETIME ONE Stop: 01/31/17 08:51 Vancomycin HCl 1 gm/ Sodium (Chloride) 250 mls @ 167 mls/hr IV ONETIME ONE Stop: 01/29/17 18:16 Last Admin: 01/29/17 16:57 Dose: 167 mls/hr Sodium Chloride (Normal Saline) 1,000 mls @ 500 mls/hr IV .BOLUS ONE Stop: 01/29/17 18:47 Last Infusion: 01/29/17 18:43 Dose: 400 mls/hr Potassium Chloride 10 meq/ (Premix) 100 mls @ 100 mls/hr IV Q1H [facility] Stop: 01/29/17 21:44 Last Admin: 01/29/17 22:09 Dose: 100 mls/hr Sodium Chloride (Normal Saline) 1,000 mls @ 999 mls/hr IV ASDIRECTED [facility] Stop: 01/29/17 19:21 Last Admin: 01/29/17 19:49 Dose: 999 mls/hr Sodium Chloride (Normal Saline) 1,000 mls @ 250 mls/hr IV ASDIRECTED [facility] Last Infusion: 01/30/17 18:33 Dose: 100 mls/hr Ceftriaxone Sodium 1 gm/ (Sodium Chloride) 50 mls @ 100 mls/hr IV Q24H [facility] Last Admin: 01/29/17 18:41 Dose: Not Given Ceftriaxone Sodium 2 gm/ (Sodium Chloride) 100 mls @ 200 mls/hr IV Q24H [facility] Last Admin: 01/29/17 19:03 Dose: 200 mls/hr Magnesium Sulfate 2 gm/ Premix 50 mls @ 50 mls/hr IV Q1H [facility] Stop: 01/30/17 10:13 Last Infusion: 01/30/17 12:30 Dose: Infused Potassium Chloride 10 meq/ (Premix) 0 mls @ 100 mls/hr IV Q1H [facility] Stop: 01/30/17 12:31 Last Admin: 01/30/17 15:46 Dose: 75 mls/hr Vancomycin HCl 1 gm/ Sodium (Chloride) 250 mls @ 167 mls/hr IV ONETIME ONE Stop: 01/30/17 11:23 Last Admin: 01/30/17 12:26 Dose: Not Given Sodium Chloride (Normal Saline) 1,000 mls @ 100 mls/hr IV ASDIRECTED [facility] Last Admin: 01/31/17 06:04 Dose: 100 mls/hr Ibuprofen (Motrin) 200 mg PO Q12H PRN PRN Reason: Fever 104 or greater Last Admin: 01/30/17 01:41 Dose: 200 mg Ibuprofen (Motrin) 200 mg PO Q6H PRN PRN Reason: pain/fever Last Admin: 01/30/17 12:13 Dose: 200 mg Ibuprofen (Motrin) 400 mg PO ONETIME [facility] Stop: 01/30/17 15:20 Last Admin: 01/30/17 15:48 Dose: 400 mg Ketorolac Tromethamine (Toradol) 30 mg IVPUSH ONETIME ONE Stop: 01/29/17 17:55 Last Admin: 01/29/17 18:38 Dose: 30 mg Morphine Sulfate (Morphine) 2 mg IVPUSH ONETIME ONE Stop: 01/29/17 16:02 Last Admin: 01/29/17 16:05 Dose: 2 mg Ondansetron HCl (Zofran) 4 mg IV ONETIME ONE Stop: 01/29/17 16:02 Last Admin: 01/29/17 16:05 Dose: 4 mg Potassium Chloride (Klor-Con 10) 20 meq PO TIDMEALS [facility] Stop: 01/30/17 12:01 Last Admin: 01/30/17 12:09 Dose: 20 meq Potassium Chloride (Klor-Con 10) 20 meq PO ONETIME ONE Stop: 01/29/17 21:01 Last Admin: 01/29/17 21:07 Dose: 20 meq Potassium Chloride (Klor-Con 10) 40 meq PO ONETIME ONE Stop: 01/31/17 08:51 - Exam Quality Assessment: Reports: Urine Catheter, DVT Prophylaxis. Denies: Supplemental Oxygen General: Reports: Alert, Oriented, Cooperative, No Acute Distress HEENT: Reports: Pupils Equal, Mucous Membr. Moist/[place] Neck: Reports: Supple, No JVD, No Thyromegaly Lungs: Reports: Clear to Auscultation, Normal Respiratory Effort. Denies: Crackles, Wheezing GI/Abdominal Exam: Normal Bowel Sounds, Soft, Non-Tender. No: Guarding, Rebound (Female) Exam: Deferred Rectal (Female) Exam: Deferred Back Exam: Reports: Normal Inspection, Full Range of Motion Extremities: Pedal Edema, Increased Warmth, Other (Left LE redness is increasing ) Skin: Reports: Warm, Dry, Intact Neurological: Reports: No New Focal Deficit Psy/Mental Status: Reports: Alert, Normal Affect, Normal Mood *Q Meaningful Use (DIS) - VTE *Q VTE Criteria *Q: - Stroke *Q Stroke Criteria *Q: - AMI *Q AMI Criteria *Q:
[2017-01-31 10:17] VITALS: BP 130/70
--- NOTE | 2017-02-08 10:35 | EKG ---
01/29/2017- KATI BEAN - This is a standard 12-lead EKG showing normal sinus rhythm with a ventricular rate of 101 beats per minute. Normal QT interval, QRS duration. No significant ST-T changes. [facility] /[id number]
== END 2017-01-31 11:30 | DRG 872 ==
LOC: DL.ED 15:34 → DL.MS 17:11
PROVIDERS: ADMIT Family Medicine; ATTEND Family Medicine
DX: A41.9 Sepsis, unspecified organism (principal); L03.116 Cellulitis of left lower limb; E78.5 Hyperlipidemia, unspecified; I10 Essential (primary) hypertension; N87.9 Dysplasia of cervix uteri, unspecified; E87.6 Hypokalemia; M79.662 Pain in left lower leg; E83.42 Hypomagnesemia; Z88.5 Allergy status to narcotic agent
CPT/HCPCS: 36415; 80048; 80053; 83605; 83735; 84132; 85025; 85379; 86140; 87040; 93005; 93971; 96365; 96366; 96375; 99284; A9270-GY; J0690; J0696; J1170; J1650; J1885; J1940; J2270; J2405; J3370; J3475; J3480; J7030; J7050; S0028

== ENCOUNTER 2017-02-16 15:15 | Inpatient (IN) | payer OTHER ==
[2017-02-16] MEDS ORDERED: Bisacodyl 5 MG Tab PO PRN (16:38)
[2017-02-16] MEDS ORDERED: Magnesium Hydroxide 400 MG/5 ML Susp 30 ML Cup PO PRN (16:38)
[2017-02-16] MEDS ORDERED: Morphine 2 MG/ML Syringe IVPUSH PRN (16:38)
[2017-02-16] MEDS ORDERED: Zolpidem 5 MG Tab PO PRN (16:38)
[2017-02-16] MEDS ORDERED: Ondansetron 4 MG Tab.DIS PO PRN (16:38)
[2017-02-16] MEDS ORDERED: Polyethylene Glycol 3350 Powder 17 GM Packet PO PRN (16:38)
[2017-02-16] MEDS ORDERED: Sodium Chloride 0.9% 10 ML Syringe FLUSH PRN (16:54)
--- NOTE | 2017-02-16 20:51 | HP ---
CHIEF COMPLAINT: Recent diagnosis of extensive cellulitis involving the left lower extremity requiring further wound cares and physical therapy and occupational therapy, admitting to swing bed. HISTORY OF PRESENTING ILLNESS: Mrs. Ming Thompson is a 52-year-old female with a medical history significant for hypertension, recently diagnosed with cellulitis back in January and was initially admitted to this hospital with complaints of extensive cellulitis. The patient was started on IV antibiotics, but later her cellulitis got worse, so was transferred to [facility] on 01/31/2017. While at [facility], the patient had extensive workup done and was started on vancomycin and clindamycin. She had completed almost 2 weeks of IV vancomycin and then she developed Red man syndrome, so switched to oral Zyvox by Infectious Disease team while there. She has completed her course of clindamycin also. The patient also had a CT scan of the left lower extremity which did not show any evidence of necrotizing fasciitis. The patient was also evaluated by Surgical services over there x2 and did not feel that she had any necrotizing fasciitis. The patient was advised to continue with wound dressing. She is unable to ambulate well secondary to the extensive cellulitis, so being admitted to swing bed for continued physical therapy. At this time, the patient continues to have pain to the left lower extremity. She grades the pain as 6 to 10/10 in intensity, which gets aggravated on ambulation and relieved with rest and pain medication, nonradiating type of pain, sharp in nature, not associated with nausea or vomiting. Denies any chest pain. No shortness of breath. No abdominal pain. No diarrhea in the last few days. The patient denies any recent trauma. In the past, she had some bug bites, which formed scabs on the left lower extremity, but this was back in November and December. She denied any recent history in the past. The patient denied any history of chest pains on exertion. No history of dyspnea on exertion. No history of orthopnea or paroxysmal nocturnal dyspnea. The patient denied any history of hematemesis, hematochezia, or melenic stools. Normal bowel and bladder habits otherwise. REVIEW OF SYSTEMS: A complete review of system including skin, ear, nose, and throat, cardiovascular system, respiratory system, gastrointestinal system, genitourinary system, hematology, oncology, neurology, allergy, immunology, endocrinology and constitutional were all evaluated and were negative except for the above-said notes. PAST MEDICAL HISTORY: Significant for hypertension, hyperlipidemia, eczema, low- grade squamous intraepithelial lesion on cytological smear of cervix. PAST SURGICAL HISTORY: Significant for dilatation and curettage, tonsillectomy and adenoidectomy, laminectomy, and . FAMILY HISTORY: Significant for depression, heart disease, and blood clots in her father. History of hypertension and heart disease in her mother. Depression and scoliosis in her sister. Diabetes in maternal aunt and uncle. SOCIAL HISTORY: The patient had history of smoking tobacco in the remote past but currently not smoking. History of occasional alcohol intake. ALLERGIES: The patient noted to have allergies to codeine. PHYSICAL EXAMINATION: Vital Signs: Temperature of 98.5, pulse of 77, blood pressure 131/71, respiratory rate of 20, saturating at 100% on room air. General Appearance: The patient is well oriented to time, place, and person. Follows commands spontaneously. Cardiovascular System: S1, S2 heard with normal intensity. No gallops. Respiratory System: Clear to auscultation bilaterally. No wheeze. No crepitations. Abdomen: Soft. Bowel sounds positive. Nontender. No rigidity. Extremities: No edema, but the patient noted to have extensive cellulitis involving the left lower extremity with eczema and also blisters noted on the medial aspect of the left lower extremity near the ankle. Pulses felt well. Edema noted on the left lower extremity. Sensation preserved. Neurology: No gross focal neurological deficits. MEDICATIONS: 1. Diphenhydramine 50 mg every 6 hours as needed for itch. 2. Lactulose 15 mL by mouth 1 daily. 3. Linezolid 600 mg by mouth twice a day. 4. Oxycodone 10 mg 2 times a day and 5 mg every 8 hours as needed for pain. 5. Lyrica 200 mg 3 times a day. 6. Senokot 2 tablets 2 times a day for constipation. ASSESSMENT: 1. Extensive cellulitis in the left lower extremity. 2. Continued physical therapy and occupational therapy. 3. Hypertension. PLAN: 1. Cellulitis. The patient is noted to have extensive cellulitis involving the left lower extremity involving blisters. She would need to continue with Zyvox for 2 more weeks from today. We will continue with wound cares. We will try to keep the left lower extremity elevated to decrease the swelling and we will have Physical Therapy and Occupational Therapy evaluate and treat the patient. 2. Hypertension. The patient's blood pressure seems to be in acceptable range. The patient usually takes chlorthalidone, but was noted to have hyponatremia and hypokalemia for which it was on hold. We will continue to hold the chlorthalidone for now and resume it once she is more stable. 3. Pain. The patient continues to have severe pain to the left lower extremity. She is noted to be on oxycodone and OxyContin, continue the same. 4. DVT prophylaxis. We will have her on heparin 5000 units subcu q.12 hourly for DVT prophylaxis. 5. Code status; the patient wants to be full code. 6. Discussed with family members at bedside. Reviewed the labs and medications. Reviewed the old charts. [facility] /[id number]
[2017-02-16] MEDS: [UNRECOGNIZED DRUG - REMARK] PO SCH (21:46)
[2017-02-16] MEDS: Pregabalin 50 MG Cap PO SCH (21:47)
[2017-02-16] MEDS: diphenhydrAMINE 50 MG Cap PO PRN (21:48)
[2017-02-16] MEDS: oxyCODONE ER 10 MG TAB.ER PO SCH (21:48)
[2017-02-16] MEDS: Heparin Sodium 5,000 Units/ML Vial SUBCUT SCH (21:53)
[2017-02-17] MEDS: Heparin Sodium 5,000 Units/ML Vial SUBCUT SCH ×3 (05:48→22:21)
[2017-02-17 07:18] LABS: CHLORIDE,CL 102 mmol/L (101-111); SODIUM,NA 139 mmol/L (135-145)
[2017-02-17] MEDS: Pregabalin 50 MG Cap PO SCH ×3 (08:44→22:19)
[2017-02-17] MEDS: oxyCODONE ER 10 MG TAB.ER PO SCH ×2 (08:44→22:20)
[2017-02-17] MEDS: diphenhydrAMINE 50 MG Cap PO PRN ×2 (08:45→22:35)
[2017-02-17] MEDS: oxyCODONE 5 MG Tab PO PRN (08:45)
[2017-02-17] MEDS: Lactulose Soln 10 GM/15 ML 30 ML UD Cup PO SCH (08:45)
[2017-02-17] MEDS: [UNRECOGNIZED DRUG - REMARK] PO SCH ×2 (08:46→22:18)
[2017-02-17] MEDS ORDERED: Hydrocortisone 1% Crm 30 GM Tube TOP PRN ×2 (16:10→16:29)
[2017-02-18] MEDS: Heparin Sodium 5,000 Units/ML Vial SUBCUT SCH ×3 (06:26→21:55)
[2017-02-18] MEDS: oxyCODONE 5 MG Tab PO PRN (09:32)
[2017-02-18] MEDS: Pregabalin 50 MG Cap PO SCH ×3 (09:33→20:51)
[2017-02-18] MEDS: oxyCODONE ER 10 MG TAB.ER PO SCH (09:33)
[2017-02-18] MEDS: Lactulose Soln 10 GM/15 ML 30 ML UD Cup PO SCH (09:35)
[2017-02-18] MEDS: [UNRECOGNIZED DRUG - REMARK] PO SCH ×2 (09:44→20:50)
[2017-02-18] MEDS: diphenhydrAMINE 50 MG Cap PO PRN (09:44)
[2017-02-18] MEDS ORDERED: oxyCODONE ER 10 MG TAB.ER PO SCH (10:52)
[2017-02-18] MEDS ORDERED: Famotidine 20 MG Tab PO ONE ×2 (10:53→15:00)
[2017-02-18] MEDS: Famotidine 20 MG Tab PO SCH (20:52)
[2017-02-19] MEDS: Heparin Sodium 5,000 Units/ML Vial SUBCUT SCH ×3 (05:48→21:47)
[2017-02-19] MEDS ORDERED: oxyCODONE 5 MG Tab PO PRN (07:25)
[2017-02-19] MEDS: Famotidine 20 MG Tab PO SCH ×2 (09:01→21:47)
[2017-02-19] MEDS: Pregabalin 50 MG Cap PO SCH ×3 (09:02→21:46)
[2017-02-19] MEDS: Lactulose Soln 10 GM/15 ML 30 ML UD Cup PO SCH (09:02)
[2017-02-19] MEDS: [UNRECOGNIZED DRUG - REMARK] PO SCH ×2 (09:02→21:48)
[2017-02-19] MEDS: diphenhydrAMINE 50 MG Cap PO PRN (20:22)
[2017-02-20] MEDS: Heparin Sodium 5,000 Units/ML Vial SUBCUT SCH ×3 (06:43→21:28)
[2017-02-20] MEDS: Acetaminophen 325 MG Tab PO PRN ×2 (06:55→21:25)
[2017-02-20] MEDS: Lactulose Soln 10 GM/15 ML 30 ML UD Cup PO SCH (09:18)
[2017-02-20] MEDS: [UNRECOGNIZED DRUG - REMARK] PO SCH ×2 (09:19→21:25)
[2017-02-20] MEDS: Pregabalin 50 MG Cap PO SCH ×3 (09:20→21:24)
[2017-02-20] MEDS: Famotidine 20 MG Tab PO SCH ×2 (09:21→21:24)
[2017-02-20] MEDS: diphenhydrAMINE 50 MG Cap PO PRN (21:24)
[2017-02-21] MEDS: Heparin Sodium 5,000 Units/ML Vial SUBCUT SCH ×3 (06:35→21:19)
[2017-02-21] MEDS: Lactulose Soln 10 GM/15 ML 30 ML UD Cup PO SCH (09:49)
[2017-02-21] MEDS: Pregabalin 50 MG Cap PO SCH ×3 (09:58→21:18)
[2017-02-21] MEDS: Famotidine 20 MG Tab PO SCH ×2 (09:59→21:19)
[2017-02-21] MEDS: [UNRECOGNIZED DRUG - REMARK] PO SCH ×2 (10:03→21:17)
[2017-02-22] MEDS: Heparin Sodium 5,000 Units/ML Vial SUBCUT SCH ×3 (05:59→21:33)
--- NOTE | 2017-02-22 07:19 | PN ---
DATE: 02/19/2017 SUBJECTIVE: Ms. Lai is a 52-year-old female, was admitted because of cellulitis, continued antibiotics and dressing changes, [facility]. Patient requested to be weaned off from the pain medication. She was taking OxyContin 10 mg every 12 hours. She is requesting to be back to work soon. She denies any side effects from her pain medication. Whenever they do dressing changes, she can tolerate the pain well. It was reported that she developed Red man syndrome during IV vancomycin and the vancomycin has been stopped. Continues to have rash, occasionally itchy. She tries to take Benadryl in the morning. She still has extensive areas of rash. OBJECTIVE: Vital Signs: Reviewed. Extremities: Left lower extremity showed area of extensive cellulitis with some superficial ulceration on the medial aspect and by the ankle. Capillary refill and pulses felt distal to the both side. Intact sensation as well. ASSESSMENT AND PLAN: 1. Continue with Zyvox. 2. Continue with dressing change. 3. We will add famotidine 20 mg every 12 hours for the reported Red man syndrome. 4. We will discontinue OxyContin and we will change oxycodone to every 6 hours. We will continue to follow patient in swing bed. [facility] /[id number]
[2017-02-22] MEDS: Lactulose Soln 10 GM/15 ML 30 ML UD Cup PO SCH (08:23)
[2017-02-22] MEDS: Famotidine 20 MG Tab PO SCH ×2 (09:09→21:32)
[2017-02-22] MEDS: [UNRECOGNIZED DRUG - REMARK] PO SCH ×2 (09:09→21:31)
[2017-02-22] MEDS: Pregabalin 50 MG Cap PO SCH ×3 (09:09→21:32)
[2017-02-22] MEDS: Acetaminophen 325 MG Tab PO PRN (14:35)
--- NOTE | 2017-02-22 18:25 | PN ---
DATE: 02/22/2017 Ms. Lai is a 52-year-old lady who is being treated for left lower extremity cellulitis. She was recently diagnosed with acute cellulitis involving left lower extremity in January and was admitted to [facility] in [place]. At that time, she received IV Vanco and clindamycin. No evidence of necrotizing fasciitis was found. She was switched to oral Zyvox. She will need to continue this for another 2 weeks. While at [place], she developed Red Man syndrome and this is resolving. Vancomycin has been added to her allergy list. She had been on OxyContin every 12 hours and had declined that and now is on plain oxycodone 5 mg every 6 hours and has taken very little oxycodone. Lab work performed at time of admission showed normocytic anemia with hemoglobin and hematocrit of 11 and 35. White count and platelets were unremarkable. Electrolytes were normal. BUN and creatinine were 12 and 0.8 with a GFR of more than 60. Review of her clinical data shows that she is taking in fluids. She is voiding and moving her bowels. She is tolerating her meals. She has been working with physical and occupational therapy on a daily basis. Unfortunately, the infection of the LLE has left her with a severe peripheral neuropathy. She told therapy that it is a burning pain, and that when she looks down at the leg, she almost expects to see it "on fire." Therapy feels that she will need to go home with a wheelchair, for the forseeable future, as her gait, mobility and endurance are impaired due to the neuropathy. The pain limits her ability to stand and walk for any length of time. She will return as an outpatient for therapy. Her will learn to change the compression dressing. The dressing is in place because it helps with the peripheral neuropathy and pain. PHYSICAL EXAMINATION: Vital Signs: Stable and she remains afebrile. Blood pressure 126/74, pulse 77, respiratory rate 20, oxygen saturation 99% on room air. General: She is seated in her bed with her left leg elevated. Therapy has been in and there is a compression wrap on the left lower extremity. She is in good spirits. She is very well versed in her care and what has been going on. She voiced no new concerns or complaints. No chest pain or shortness of breath. No calf or leg pain other than the area of the cellulitis. HEENT: Unremarkable. Chest: Showed clear bilateral breath sounds. Heart: Showed regular rate and rhythm. Abdomen: Benign. Extremities: The left lower extremity is encased in a wrap from the knee to the toes. The foot is neurovascularly intact. Examination of the left leg shows resolving red rash from the Red Man syndrome on the posterior calf. Otherwise, calf is soft and nontender. No other changes are made in her care today. She continues on the oral Zyvox 600 mg twice a day. She is on subcutaneous heparin for VTE prophylaxis and her usual medications continue. There is a care conference tomorrow and she is hoping to be discharged following the care conference. No other changes are made. Once discharge plan is in place, we will place DME orders. [facility] /[id number] MTDD
[2017-02-23] MEDS: Heparin Sodium 5,000 Units/ML Vial SUBCUT SCH ×2 (06:00→14:06)
[2017-02-23] MEDS: Acetaminophen 325 MG Tab PO PRN (06:04)
[2017-02-23] MEDS: Pregabalin 50 MG Cap PO SCH ×2 (08:38→14:05)
[2017-02-23] MEDS: Famotidine 20 MG Tab PO SCH (08:38)
[2017-02-23] MEDS: Lactulose Soln 10 GM/15 ML 30 ML UD Cup PO SCH (08:54)
[2017-02-23] MEDS: [UNRECOGNIZED DRUG - REMARK] PO SCH (09:48)
[2017-02-23 16:13] VITALS: BP 129/79
--- NOTE | 2017-03-02 03:07 | DISCH ---
FINAL DIAGNOSES: 1. Severe left lower extremity hemorrhagic cellulitis, improving. 2. History of sepsis secondary to #1, resolved. 3. Sensory neuropathy as complication of the cellulitis. 4. Hypertension by history. 5. Anemia, normocytic. HISTORY OF PRESENT ILLNESS: Donna Lai is a 52-year-old lady, who was hospitalized briefly in [place] from January 29 to January 31 before being transferred to [facility] in [place] for treatment of a severe left lower extremity hemorrhagic cellulitis. She was transferred back now for continuing IV antibiotics and for therapy prior to discharge. On January 29, she presented with cellulitis of the left leg. She was started on IV vancomycin and ceftriaxone and then transferred. During her [place] stay, she apparently developed Red Man syndrome due to the vancomycin. Vancomycin was stopped and it was at that time that the linezolid was started. The vancomycin has been added to her intolerance list. She had persistent fevers on the antibiotics, and these were changed to vancomycin and clindamycin in [place]. She continued to have left lower extremity pain. CT scan was performed in [place] to rule out necrotizing fasciitis. There was some soft tissue involvement. Surgery was consulted and determined she did not need any surgical procedures and they felt she did not have necrotizing fasciitis. Cultures were taken of large fluid-filled bullae and did not identify an organism. After completing 2 weeks of IV vancomycin, she was switched to oral linezolid 600 mg twice a day and she continued this while in swing bed. PERTINENT LABORATORY DATA AND X-RAYS: CBC showed normal white count and platelets. Hemoglobin and hematocrit were 10.9 and 35 with an MCV of 95. Electrolytes were normal. They had been abnormal during her acute hospitalization, but have normalized now. BUN and creatinine were 12 and 0.8 with a GFR of more than 60. No imaging studies were performed during this admission. HOSPITAL COURSE: Nursing and Occupational Therapy continued with wound care. The left lower extremity was wrapped with Xeroform, ABD, and Kerlix after being cleaned with soap and water and dried. The leg was covered partly to help with the pain, as she has more comfort when the skin is covered. Overall, she did well with the pain and took very little in the way of opiod medications. Review of her clinical data showed that she was taking adequate fluids. She was voiding and moving her bowels. She was tolerating 100% of most of her meals. Vital signs were stable, and she has remained afebrile since the time of her admission. She is now ready to be discharged to home. She will come in on an outpatient basis to continue working with therapy and for dressing changes. PHYSICAL EXAMINATION: General: She was seated comfortably in bed. She voiced no new concerns or complaints. She is glad to be going home. Vital Signs: Blood pressure on the day of discharge 126/71, pulse 67 and regular, respiratory rate 18, oxygen saturation 98% on room air. She is afebrile. HEENT: Unremarkable. ENT was clear. Chest: Showed clear but diminished bilateral breath sounds. Heart: Showed regular rate and rhythm. Abdomen: Obese, soft, and benign. Extremities: Showed the left lower extremity to be covered in a compression wrap from the toes to below the knee. The dressing was not removed. There is some tenderness on palpation of the calf, but this is mostly from the residual cellulitis and her ongoing neuropathy. Examination of the right leg showed the calf to be soft and nontender. Images taken by the nursing staff of the leg were reviewed and showed an extensive cellulitis of the left lower leg with marked discoloration and skin in various stages of healing as well as sloughing off. FOLLOWUP: 1. She will see her primary care physician, Dr. Perales on March 27 at 9:00. 2. She will see Dr. Sherice Cope, Infectious Disease, at [facility] in [place] on March 15 at 10:00 am and on the same day, will see JONA Bird for followup at wound clinic at [facility]. DISCHARGE MEDICATIONS: 1. She had been on chlorthalidone 25 mg daily, but her blood pressures have been well controlled. The chlorthalidone has been held during this admission. She will continue to monitor blood pressure and will restart the chlorthalidone if blood pressure starts to increase. She will discuss this also with Dr. Perales. 2. Ibuprofen 200 mg every 8 hours p.r.n. 3. Lactulose 10 g daily. 4. Lyrica 200 mg three times a day. 5. Senna-S two tabs twice a day. 6. Benadryl 50 mg every 6 hours p.r.n. for itching. 7. She will continue on linezolid 600 mg twice a day for another 7 days. ALLERGIES: Codeine and vancomycin (Red Man syndrome). DISCHARGE PLAN: [facility] was requested with a leg raise. She has limited endurance at this time for walking and standing due to the painful neuropathy in the left lower extremity. She will be going back to work. Most of her work is sedentary. She does not need to stand and walk, and therefore can use a wheelchair at work as well. The order and [id number] visits were sent electronically to [facility] in [facility]. CONDITION AT THE TIME OF DISCHARGE: Improved and stable. CODE STATUS: Code status during this admission, Full Code. [facility] /[id number] MTDD
== END 2017-02-23 16:55 | disposition home or self-care (01) | DRG 603 ==
LOC: DL.MS 15:36 → UNDOADMIN 15:36 → DL.MS 16:38
PROVIDERS: ADMIT Internal Medicine; ATTEND Internal Medicine
DX: L03.116 Cellulitis of left lower limb (principal); G62.9 Polyneuropathy, unspecified; D64.9 Anemia, unspecified; I10 Essential (primary) hypertension; E78.5 Hyperlipidemia, unspecified; Z79.899 Other long term (current) drug therapy; Z87.891 Personal history of nicotine dependence
CPT/HCPCS: 36415; 80048; 85027; 97110-GP; 97116-GP; 97140-GO; 97161-GP; 97165-GO; 97530-GO; 97535-GO; A9270-GY; J1644; Q0163

== ENCOUNTER 2019-03-17 20:50 | Emergency (ER) | payer OTHER ==
[2019-03-17] MEDS ORDERED: Cyclobenzaprine 10 MG Tab PO ONE ×2 (20:51→21:54)
[2019-03-17] MEDS ORDERED: Acetaminophen/HYDROcodone 325-10 MG Tab PO ONE ×2 (20:51→21:54)
[2019-03-17 22:51] VITALS: BP 134/87; PULSE 72
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
[2019-03-17] MEDS ORDERED: Cyclobenzaprine 10 MG Tab ONE (23:06)
[2019-03-17] MEDS ORDERED: Acetaminophen/HYDROcodone 325-10 MG Tab ONE ×2 (23:07→23:08)
== END 2019-03-17 23:15 | disposition home or self-care (01) ==
LOC: DL.ED 20:50
DX: S13.9XXA Sprain of joints and ligaments of unspecified parts of neck, initial encounter (principal); V59.40XA Driver of pick-up truck or van injured in collision with unspecified motor vehicles in traffic accident, initial encounter; Y92.410 Unspecified street and highway as the place of occurrence of the external cause
CPT/HCPCS: 72125; 99283; A9270

== ENCOUNTER 2020-02-02 05:56 | Day surgery (SDC) | payer OTHER ==
[2020-02-02] MEDS ORDERED: Midazolam 1 MG/ML 2 ML SDV IV ONE ×6 (05:57→06:59)
[2020-02-02] MEDS ORDERED: fentaNYL 100 MCG/2 ML SDV IV ONE ×3 (05:57→06:51)
[2020-02-02] MEDS ORDERED: Sodium Chloride 0.9% 10 ML Syringe FLUSH PRN (06:00)
[2020-02-02] MEDS ORDERED: Dextrose 5%-0.45% NaCl 1,000 ML IV SCH (06:00)
[2020-02-02] MEDS ORDERED: Midazolam 1 MG/ML 2 ML SDV ONE (06:15)
[2020-02-02] MEDS ORDERED: fentaNYL 100 MCG/2 ML SDV ONE (06:16)
--- NOTE | 2020-02-02 08:48 | OR ---
DATE: 02/02/2020 PROCEDURE: Total colonoscopy. INSTRUMENT USED: PCF-H190DL Olympus video colonoscope. PREMEDICATIONS: Fentanyl 100 mcg intravenous, Versed 3.5 mg intravenous. Nasal O2 cannula. The procedure was done under pulse oximetry, BP recording, and monitoring engineer. INDICATIONS: Screening colonoscopic examination is done for detection of any polypoid lesions and removal, endoscopic hemostasis therapy if needed. DESCRIPTION OF PROCEDURE: Initial rectal exam was unremarkable. Rigid anoscopy was normal. The colonoscope was passed with ease up to the ileocecal area. Photographs were taken of the normal-appearing cecum identified by landmarks of appendiceal orifice and double-bulged ileocecal folds. No bleeding was noted from any of the visualized areas at the commencement of the examination. The bowel preparation was found to be adequate, Clark scale 3 in all the regions, total score 9. No stricture. No vascular ectasia. No large isolated ulcerations seen. No evidence of diffuse inflammatory bowel disease in the form of friability, contact bleeding, or ulcerations. No polyp or tumor mass identified. Probing the proximal sides of folds and flexures using adequate distention and clearing up the stool material, withdrawal of the scope was made, cecum to rectum time over 6 minutes. No bleeding was noted from any of the visualized areas at the completion of examination. IMPRESSION: Normal study. The patient tolerated the procedure well. [facility] /[id number]
[2020-02-02 09:01] VITALS: BP 127/80; PULSE 74
== END 2020-02-02 09:06 | disposition home or self-care (01) ==
LOC: DL.ENDO 05:56
PROVIDERS: ATTEND Internal Medicine Gastroenterology
DX: Z12.11 Encounter for screening for malignant neoplasm of colon (principal); E66.09 Other obesity due to excess calories; I10 Essential (primary) hypertension; E78.5 Hyperlipidemia, unspecified; Z87.828 Personal history of other (healed) physical injury and trauma; Z88.5 Allergy status to narcotic agent; Z88.1 Allergy status to other antibiotic agents; Z98.890 Other specified postprocedural states; Z87.2 Personal history of diseases of the skin and subcutaneous tissue; Z87.891 Personal history of nicotine dependence; Z68.36 Body mass index [BMI] 36.0-36.9, adult
CPT/HCPCS: 81025; J2250; J3010; J7042